=== PATIENT | male | born 1940 | race Caucasian/White ===

== ENCOUNTER 2025-04-01 09:39 | Emergency (ER) | payer OTHER, MEDICARE ==
[2025-04-01] MEDS: Aspirin 81 MG Tab.Chew PO ONE (09:50)
[2025-04-01] MEDS ORDERED: Sodium Chloride 0.9% 10 ML Syringe FLUSH PRN (10:01)
[2025-04-01 10:17] LABS: BASOPHILS ABSOLUTE AUTO 0.1 x10^3/uL (0.0-0.2); BASOPHILS PERCENT AUTO 0.5 % (0.2-1.2); EOSINOPHILS ABSOLUTE AUTO 0.1 x10^3/uL (0.0-0.5); EOSINOPHILS PERCENT AUTO 0.5 % (0.0-4.0); HEMATOCRIT 48.1 % (40.0-52.0); HEMOGLOBIN 16.4 g/dL (14.0-18.0); IMMATURE GRAN ABSOLUTE AUTO 0.03 x10^3/uL (0.00-0.07); LYMPHOCYTES ABSOLUTE AUTO 0.9 x10^3/uL (1.0-4.8); MEAN CORPUSCULAR HEMOGLOBIN 30.3 pg (26.0-32.0); MEAN CORPUSCULAR HGB CONC 34.1 g/dL (32.0-36.0); MEAN CORPUSCULAR VOLUME 88.9 fL (78.0-93.0); MONOCYTES ABSOLUTE AUTO 0.8 x10^3/uL (0.0-0.8); MONOCYTES PERCENT AUTO 7.2 % (2.0-11.0); NEUTROPHILS ABSOLUTE AUTO 9.3 x10^3/uL (1.8-7.7); NEUTROPHILS PERCENT AUTO 83.5 % (50.0-80.0); PLATELET COUNT,PLT 226 x10^3/uL (130-400); RED BLOOD CELL COUNT 5.41 x10^6/uL (4.5-6.0); WHITE BLOOD CELL COUNT,WBC 11.1 x10^3/uL (4.0-10.0)
[2025-04-01 10:43] LABS: LACTIC ACID 1.2 mmol/L (0.4-2.0)
[2025-04-01 10:48] LABS: A/G RATIO 1.03; ALANINE AMINOTRANSFERASE,ALT 29 U/L (16-63); ALBUMIN 3.7 g/dL (3.4-5.0); ALKALINE PHOSPHATASE 61 U/L (46-116); ANION GAP 11.9 mmol/L (5-15); ASPARTATE AMNIOTRANSFERASE,AST 24 U/L (15-37); BLOOD UREA NITROGEN,BUN 34 mg/dL (7-18); CALCIUM 9.7 mg/dL (8.5-10.1); CARBON DIOXIDE,CO2 26 mmol/L (21-32); CHLORIDE,CL 106 mmol/L (98-107); EST CRCL DRUG DOSING (CG) 59.28 mL/min; ESTIMATED GFR 74 mL/min (>=60); GLUCOSE RANDOM 100 mg/dL (70-99); POTASSIUM,K 3.9 mmol/L (3.5-5.1); PRO B-TYPE NATRIUR PEPT,BNPPRO 226 pg/mL (<=450); PROTEIN TOTAL,TP 7.3 g/dL (6.4-8.2); SODIUM,NA 140 mmol/L (136-145)
[2025-04-01 10:49] LABS: C-REACTIVE PROTEIN < 0.50 mg/dL (<=0.50)
[2025-04-01] MEDS ORDERED: Lidocaine 1% 10 ML MDV INJECT ONE (11:21)
== END 2025-04-01 12:07 | disposition short-term general hospital (02) ==
LOC: VM.ED 09:39
DX: J93.9 Pneumothorax, unspecified (principal); I10 Essential (primary) hypertension; E78.00 Pure hypercholesterolemia, unspecified; I48.91 Unspecified atrial fibrillation; Z87.891 Personal history of nicotine dependence; Z79.01 Long term (current) use of anticoagulants
CPT/HCPCS: 36415; 71045; 80053; 83605; 83880; 84484; 85025; 86140; 93005; 99285; A9270-GY